=== PATIENT | female | born 1990 | race Asian ===

== ENCOUNTER 2019-07-28 05:26 | Emergency (ER) | payer OTHER ==
--- NOTE | 2019-07-28 05:51 | ED ---
Nausea/Vomiting/Diarrhea HPI - HPI Summary HPI Summary: Patient is a 29-year-old female who presents emergency department for nausea, vomiting, and diarrhea times one day. Patient notes she was diagnosed with a UTI 2 days ago and has been taking macrobid and Pyridium. Patient notes mild ongoing suprapubic pain and urinary discomfort. She states she has been taking antibiotic 2 hours after eating but started vomiting through the night. Patient notes mild diarrhea. Denies fever, chills, flank pain, vaginal discharge, concern for . No past medical history. Symptoms are mild- to-moderate in severity. No current modifying factors. - History of Current Complaint Chief Complaint: EDNauseaVomitDiarrh Stated Complaint: VOMITING PER PT Time Seen by Provider: 07/28/19 05:43 Hx Obtained From: Patient Pain Intensity: 3 - Allergies/Home Medications Allergies/Adverse Reactions: Allergies Allergy/AdvReac Type Severity Reaction Status Date / Time No Known Allergies Allergy Verified 07/28/19 05:30 Home Medications: Home Medications Nitrofurantoin Monohyd/M-Cryst [Macrobid 100 mg Capsule] 100 mg PO BID 07/28/19 [History Confirmed 07/28/19] Phenazopyridine 200 mg (NF) [Pyridium 200 MG tab *] 200 mg PO TID 07/28/19 [ History Confirmed 07/28/19] PMH/Surg Hx/FS Hx/Imm Hx Previously Healthy: Yes - Immunization History Date of Influenza Vaccine: 07/08/2019 Infectious Disease History: No Infectious Disease History: Reports: Traveled Outside the [place] in Last 30 Days - Family History Known Family History: Positive: Non-Contributory - Social History Occupation: Student Lives: Dormitory/Roommates Alcohol Use: None Substance Use Type: Reports: None Smoking Status (MU): Never Smoked Tobacco Review of Systems Constitutional: Negative Negative: Fever, Chills Cardiovascular: Negative Respiratory: Negative Gastrointestinal: Other - suprapubic pain Positive: Vomiting, Diarrhea, Nausea Positive: dysuria. Negative: discharge, flank pain Neurological: Negative All Other Systems Reviewed And Are Negative: Yes Physical Exam Triage Information Reviewed: Yes Vital Signs On Initial Exam: Initial Vitals Temp Pulse Resp BP Pulse Ox 99 F 68 14 117/47 97 07/28/19 05:27 07/28/19 05:27 07/28/19 05:27 07/28/19 05:27 07/28/19 05:27 Vital Signs Reviewed: Yes Appearance: Positive: Well-Appearing - Patient sitting up in bed in no acute distress. Friend present. Skin: Positive: Warm, Dry Head/Face: Positive: Normal Head/Face Inspection Eyes: Positive: Normal, EOMI Neck: Positive: Supple Respiratory/Lung Sounds: Positive: Clear to Auscultation, Breath Sounds Present Cardiovascular: Positive: Normal, RRR Abdomen Description: Positive: Other: - Abdomen is soft with tenderness to superior pubic region. Mild right CVA tenderness. No rebound or guarding. Neurological: Positive: Normal, CN Intact II-III Psychiatric: Positive: Affect/Mood Appropriate Procedures - Sedation Patient Received Moderate/Deep Sedation with Procedure: No Diagnostics - Vital Signs Vital Signs Temp Pulse Resp BP Pulse Ox 07/28/19 05:43 68 117/77 97 07/28/19 05:27 99 F 68 14 117/47 97 - Laboratory Result Diagrams: 07/28/19 06:01 07/28/19 06:01 Lab Statement: Any lab studies that have been ordered have been reviewed, and results considered in the medical decision making process. Naus/Vom/Diarrhea Course/Dx - Course Course Of Treatment: Pt. with mild N/V and diarrhea. Currently being treated for a UTI and urinary sxs are improving per pt. Pt. give PO dose of zofran. Labs show minimal elevation in WBC of 11.8 and CRP 19. Negative . U/A is contaminated with pyridium but shows trace leuks without bacteria, pending culture. On re-exam pt. is feeling better and tolerating PO fluids. Questionable gastro vs antibx adverse rxn? UTI seems to be improving given u.a and improvement of sxs. Will dc home with zofran. To continue macrobid. To f.u with [facility] in 2-3 days for recheck. Will return to ER for increased pain , fever, uncontrollable vomiting or if concerned. Pt. understands and agrees with plan. - Differential Dx/Diagnosis Differential Diagnoses - Female: Gastroenteritis (Viral), Gastroenteritis ( Bacterial), Vomiting, Diarrhea, Pyelonephritis Provider Diagnosis: UTI (urinary tract infection), Vomiting and diarrhea Condition At Discharge: Improved Discharge ED - Sign-Out/Discharge Documenting (check all that apply): Patient Departure - Discharge Plan Condition: Improved Disposition: HOME Prescriptions: Ondansetron ODT TAB* [Zofran 4 MG Odt TAB*] 4 mg PO Q6H PRN #20 tab.odt PRN Reason: Nausea Patient Education Materials: Urinary Tract Infection in Women (ED), Acute Nausea and Vomiting (ED) Referrals: [facility] [Outside] Additional Instructions: Follow up with [facility] in 1-2 days for recheck Take nausea medication as directed Continue antibiotic as directed with food Can try taking an over the counter probiotic Return to ER for uncontrollable vomiting, fever, or if concerned - Billing Disposition and Condition Condition: IMPROVED Disposition: Home - Attestation Statements Provider Attestation: I was available for consultation for this patient. I did not evaluate the patient or participate in any medical decision making or disposition decisions unless I am specifically named in the chart as having consulted on the patient. If I have consulted on the patient, please see my own ED note on the patient encounter. Jose Alfredo Vasquez MD
[2019-07-28] MEDS ORDERED: Ondansetron ODT TAB* 4 MG SL ONE (05:52)
[2019-07-28 06:10] LABS: ABS Basophils 0.1 10^3/ul (0-0.2); ABS Lymphocytes 0.9 10^3/ul (1.0-4.8); ABS Monocytes 0.8 10^3/ul (0-0.8); ABS Neutrophils 9.9 10^3/ul (1.5-7.7); Eosinophil % 0.3 %; Hematocrit 37 % (35-47); Hemoglobin 12.7 g/dL (12.0-16.0); Lymphocyte % 7.7 %; Mean Corpuscular HGB Conc 35 g/dL (31-36); Mean Corpuscular Hemoglobin 31 pg (27-31); Mean Corpuscular Volume 90 fL (80-97); Mean Platelet Volume 6.4 fL (7.4-10.4); Platelet Count 402 10^3/uL (150-450); Red Blood Count 4.09 10^6 /uL (3.70-4.87); Red Cell Distribution Width 13 % (10-15); White Blood Count 11.8 10^3/uL (3.5-10.8)
[2019-07-28 06:30] LABS: ALT 18 U/L (7-52); AST 23 U/L (13-39); Albumin/Globulin Ratio 1.2 (1-3); Alkaline Phosphatase 42 U/L (34-104); Anion Gap 9 mmol/L (2-11); BUN/Creatinine Ratio 14.6 (8-20); Blood Urea Nitrogen 13 mg/dL (6-24); C Reactive Protein 19.26 mg/L (<8.01); CO2 Carbon Dioxide 24 mmol/L (22-32); Calcium 9.4 mg/dL (8.6-10.3); Chloride 104 mmol/L (101-111); EGFR African American 92.1 (>60); EGFR Non-African American 76.1 (>60); Globulin 3.4 g/dL (2-4); Glucose 105 mg/dL (70-100); Potassium 4.2 mmol/L (3.5-5.0); Sodium 137 mmol/L (135-145); Total Protein 7.4 g/dL (6.4-8.9)
[2019-07-28 06:34] LABS: HCG Pregnancy < 0.60 mIU/mL
[2019-07-28 07:24] VITALS: BP 98/61
[2019-07-28 07:53] LABS: Urine Appearance Clear; Urine Color Orange
[2019-07-28 07:57] LABS: Urine Bacteria Absent (Absent); Urine Red Blood Cell Trace(0-2/hpf) (Absent); Urine Squamous Epithelial Cell Present (Absent); Urine White Blood Cell Trace(0-5/hpf) (Absent)
== END 2019-07-28 08:40 | disposition home or self-care (01) ==
LOC: ED 05:26
DX: N39.0 Urinary tract infection, site not specified (principal); R11.2 Nausea with vomiting, unspecified; R19.7 Diarrhea, unspecified; R30.0 Dysuria; Z79.899 Other long term (current) drug therapy
CPT/HCPCS: 36415; 80053; 81003; 81015; 83690; 84702; 85025; 86140; 87086; 99283; A9270-GY

== ENCOUNTER 2022-01-01 18:16 | Inpatient (IN) ==
[2022-01-01] MEDS ORDERED: Lactated Ringers 1000 ml BAG 1,000 ML IV ONE (18:17)
[2022-01-01] MEDS ORDERED: Dinoprostone 10 MG VAG.SUPP VAGINAL ONE (18:17)
[2022-01-01] MEDS ORDERED: LoraTADine 10 mg TAB (NF) PO PRN (20:35)
[2022-01-01 21:41] LABS: Urine Benzodiazepine Screen None Detected (None Detect); Urine Cannabinoids Screen None Detected (None Detect); Urine Opiates Screen None Detected (None Detect)
[2022-01-02] MEDS ORDERED: miSOPROStol 100 mcg TAB PO ONE ×3 (08:37→16:58)
[2022-01-02] MEDS ORDERED: Promethazine INJ(RESTRICTED) 25 MG/ML 1 ml VIAL IV PRN (20:56)
[2022-01-02] MEDS ORDERED: Morphine 10 MG/ML VIAL (1 ml) IV PRN (20:56)
[2022-01-02] MEDS ORDERED: Oxytocin in LR 20 UNITS/1,000 ML BAG IVPB SCH (21:00)
[2022-01-03 02:18] LABS: ABS Eosinophils 0.2 10^3/ul (0-0.6); ABS Monocytes 0.8 10^3/ul (0-0.8); ABS Neutrophils 7.4 10^3/ul (1.5-7.7); Eosinophil % 1.6 %; Hematocrit 36 % (35-47); Lymphocyte % 18.8 %; Mean Corpuscular HGB Conc 34 g/dL (31-36); Mean Corpuscular Hemoglobin 33 pg (27-31); Mean Corpuscular Volume 97 fL (80-97); Mean Platelet Volume 7.9 fL (7.4-10.4); Platelet Count 257 10^3/uL (150-450); Red Blood Count 3.71 10^6 /uL (3.70-4.87); Red Cell Distribution Width 13 % (10-15); White Blood Count 10.4 10^3/uL (3.5-10.8)
[2022-01-03] MEDS ORDERED: OBEPIDURAL (200 ML) 200 ML EPIDURAL ONE (02:27)
[2022-01-03] MEDS ORDERED: Phenylephrine 40 mcg/mL 10mL (400mcg) SYRINGE IV PUSH PRN ×2 (02:58)
[2022-01-03] MEDS ORDERED: Sodium Citrate/Citric Acid LIQ 15 ML UDC PO PRN (02:58)
[2022-01-03] MEDS ORDERED: Lactated Ringers 1000 ml BAG 500 ML IV PRN (02:58)
[2022-01-03] MEDS ORDERED: Lactated Ringers 1000 ml BAG 1,000 ML IV ONE (02:58)
[2022-01-03] MEDS ORDERED: Lactated Ringers 1000 ml BAG 1,000 ML IV SCH ×2 (03:00→14:00)
[2022-01-03] MEDS ORDERED: OBEPIDURAL (200 ML) 200 ML EPIDURAL SCH (03:00)
[2022-01-03] MEDS: Lactated Ringers 1000 ml BAG 1,000 ML IV SCH ×2 (07:41→11:17)
[2022-01-03] MEDS ORDERED: Ondansetron 4 mg VIAL 2 MG/ML 2 ml VIAL IV PRN (10:10)
[2022-01-03] MEDS ORDERED: Witch Hazel PAD JAR TOPICAL PRN (13:24)
[2022-01-03] MEDS ORDERED: Oxytocin in LR 20 UNITS/1,000 ML BAG IVPB SCH (14:00)
[2022-01-03] MEDS: Dibucaine 1% OINT 28.35 GM TUBE PR PRN (14:23)
[2022-01-04 03:48] LABS: HIV 4th Generation Nonreactive (Nonreactive)
[2022-01-04 06:31] LABS: ABS Eosinophils 0.2 10^3/ul (0-0.6); ABS Lymphocytes 2.1 10^3/ul (1.0-4.8); ABS Monocytes 0.9 10^3/ul (0-0.8); Eosinophil % 1.4 %; Hematocrit 29 % (35-47); Hemoglobin 9.8 g/dL (12.0-16.0); Mean Corpuscular HGB Conc 33 g/dL (31-36); Mean Corpuscular Hemoglobin 32 pg (27-31); Mean Corpuscular Volume 95 fL (80-97); Mean Platelet Volume 7.5 fL (7.4-10.4); Platelet Count 199 10^3/uL (150-450); Red Blood Count 3.09 10^6 /uL (3.70-4.87); Red Cell Distribution Width 13 % (10-15); White Blood Count 13.2 10^3/uL (3.5-10.8)
[2022-01-04] MEDS ORDERED: Phenylephrine IV 10 MG/ML 1 ml VIAL ONE (06:49)
[2022-01-05 08:15] VITALS: BP 98/48
[2022-01-05] MEDS: Dibucaine 1% OINT 28.35 GM TUBE PR PRN (09:01)
[2022-01-10 11:08] LABS: Hb A 97.5 % (95.8-98.0); Hb A2 2.5 % (2.0-3.3)
== END 2022-01-05 14:26 | disposition home or self-care (01) | DRG 807 ==
LOC: MCHOBOUT 18:16 → MCHOB 18:52 → UNDODISIN 01-02 13:07 → MCHOB 01-03 16:07
PROVIDERS: ADMIT Midwife; ATTEND Advanced Practice Midwife